=== PATIENT | female | born 1995 ===

== ENCOUNTER 2019-05-29 13:36 | Emergency (ER) | payer SELFPAY ==
[~2019-05-29] VITALS: Ht 165.1 cm; Wt 70.3 kg
[2019-05-29 13:37] VITALS: BP 132/70
--- NOTE | 2019-05-29 13:37 | NUR ---
ED Nurse Note: Pt brought in by ambulance due to seizure activity x 60 seconds tonic clonic. Pt was sitting down and and had a seizure witnessed by her boyfriend. No signs of trauma. Pt denies CP or dizziness. Hx of substance abuse and seizures. No taking anything for seizures. AAO x4 and ambulatory with no respiratory distress. Seizure precautions are implemented.
[2019-05-29] MEDS ORDERED: Acetaminophen 500mg (ES) tab ORAL ONE (14:30)
--- NOTE | 2019-05-29 14:33 | NUR ---
ED Nurse Note: Noted pt to fidget and with mild hand tremors.
[2019-05-29 14:37] LABS: HEMATOCRIT 39.1 % (37.0-47.0); HEMOGLOBIN 12.9 G/DL (12.0-16.0); MEAN CORPUSCULAR VOLUME 91 FL (80-99); PLATELET COUNT 239 K/UL (150-450); RED BLOOD COUNT 4.31 M/UL (4.20-5.40); RED CELL DISTRIBUTION WIDTH 11.9 % (11.6-14.8); WHITE BLOOD COUNT 3.3 K/UL (4.8-10.8)
[2019-05-29 14:48] LABS: ANION GAP 10 mmol/L (5-15); APPEARANCE,URINE SLIGHTLY CLOUDY; BILIRUBIN, URINE NEGATIVE (NEGATIVE); BLOOD UREA NITROGEN 7 mg/dL (7-18); CARBON DIOXIDE 26 MMOL/L (21-32); CHLORIDE 106 MMOL/L (98-107); COLOR,URINE PALE YELLOW; CREATININE 0.7 MG/DL (0.55-1.30); GLUCOSE, URINE (UA) NEGATIVE (NEGATIVE); KETONES,URINE NEGATIVE (NEGATIVE); LEUKOCYTE ESTERASE ,URINE 1+ (NEGATIVE); NITRITE,URINE NEGATIVE (NEGATIVE); PH,URINE 6 (4.5-8.0); POTASSIUM 3.8 MMOL/L (3.5-5.1); PROTEIN,URINE NEGATIVE (NEGATIVE); SODIUM 142 MMOL/L (136-145); UROBILINOGEN,URINE NORMAL MG/DL (0.0-1.0)
--- NOTE | 2019-05-29 14:57 | NUR ---
Lab called. Patient postive for THC. notified. Will notify primary RN. Addendum: 05/29/19 at 1459 by [facility] ED Nurse Note this is an ED note:
[2019-05-29 15:04] LABS: ALANINE AMINOTRANSFERASE 15 U/L (12-78); ALBUMIN/GLOBULIN RATIO 1.2 (1.0-2.7); ALKALINE PHOSPHATASE 52 U/L (46-116); ASPARTATE AMINO TRANSFERASE 14 U/L (15-37); BILIRUBIN,TOTAL 0.4 MG/DL (0.2-1.0); CKMB < 0.5 NG/ML (0.0-3.6); CREATINE KINASE 96 U/L (26-308)
[2019-05-29] MEDS ORDERED: CEPHALEXIN500 MG ORAL (15:24)
[2019-05-29] MEDS ORDERED: Cephalexin 500mg cap ORAL ONE (15:30)
[2019-05-29 15:32] VITALS: BP 128/89
--- NOTE | 2019-05-29 15:32 | NUR ---
ER DISCHARGE NOTE: Patient is cleared to be discharged per ERMD, pt is aox4, on room air, with stable vital signs. pt was given dc instructions, pt was able to verbalize understanding, pt id band and iv site removed without complications. pt is able to ambulate with steady gait. pt took all belongings and left with her boyfriend.
--- NOTE | 2019-05-29 17:31 | Emergency Room Report ---
History of Present Illness General Chief Complaint: Seizure Source: Patient Present Illness HPI 24-year-old female presents ED for evaluation. States that she had a seizure today. History of seizures and states she is supposed to take her medication but does not know the name of it. States she is not compliant with this medication. States she does have the medication at home. Denies falling or hitting her head. Denies any headache. Denies any blurry vision nausea or vomiting. Denies neck stiffness. Denies fevers or chills. Denies drug use. Denies alcohol use. No other aggravating relieving factors. Denies any other associated symptoms Allergies: Coded Allergies: No Known Allergies (Unverified , 05/29/19) Patient History Past Medical History: seizures Past Surgical History: none Pertinent Family History: none Social History: Reports: drug use; Denies: smoking, alcohol use Last Menstrual Period: 05/25/19 Now: No : 1 Para: 0 Immunizations: UTD Reviewed Nursing Documentation: PMH: Agreed; PSxH: Agreed Nursing Documentation-PMH Past Medical History: No History, Except For Hx Seizures: Yes Review of Systems All Other Systems: negative except mentioned in HPI Physical Exam Vital Signs Date Time Temp Pulse Resp B/P (MAP) Pulse Ox O2 Delivery O2 Flow Rate FiO2 05/29/19 13:27 97.9 94 16 130/78 (95) 98 Room Air Sp02 EP Interpretation: reviewed, normal General Appearance: no apparent distress, alert, GCS 15, non-toxic Head: normocephalic, atraumatic Eyes: bilateral eye normal inspection, bilateral eye PERRL ENT: hearing grossly normal, normal pharynx, no angioedema, normal voice Neck: full range of motion, supple/symm/no masses Respiratory: chest non-tender, lungs clear, normal breath sounds, speaking full sentences Cardiovascular #1: regular rate, rhythm, no edema Cardiovascular #2: 2+ carotid (R), 2+ carotid (L), 2+ radial (R), 2+ radial (L) , 2+ dorsalis pedis (R), 2+ dorsalis pedis (L) Gastrointestinal: normal bowel sounds, non tender, soft, non-distended, no guarding, no rebound Rectal: deferred Genitourinary: normal inspection, no CVA tenderness Musculoskeletal: back normal, gait/station normal, normal range of motion, non- tender Neurologic: alert, oriented x3, responsive, motor strength/tone normal, sensory intact, speech normal Psychiatric: judgement/insight normal, memory normal, mood/affect normal, no suicidal/homicidal ideation Reflexes: 3+ bicep (R), 3+ bicep (L), 3+ tricep (R), 3+ tricep (L), 3+ knee (R) , 3+ knee (L) Skin: no rash Lymphatic: no adenopathy Medical Decision Making Diagnostic Impression: Primary Impression: UTI (urinary tract infection) Qualified Codes: N39.0 - Urinary tract infection, site not specified Additional Impression: Seizure disorder ER Course Hospital Course 24-year-old F presents to ED status post seizure. Differential diagnosis includes- breakthrough seizure, alcohol abuse, noncompliance with medication Clinical course Patient placed on stretcher. Initial history and physical I ordered labs, IV fluids Labs-electrolytes okay, no leukocytosis, hemoglobin/hematocrit stable. UA + bacteria. UDS+ THC EKG - NSR, no acute ischemic changes intepreted by me I discussed findings with patient. Explained that marijuana can lower seizure threshold. Explained the importance of taking her medication as directed. Given Keflex in ED. Safe for discharge for close outpatient follow-up. Will provide referrals Diagnosis - UTI, seizure disorder stable and discharged to home with Rx Keflex. Followup with PMD. Return to ED if symptoms recur or worsen Labs Test 05/29/19 14:06 White Blood Count 3.3 K/UL (4.8-10.8) Red Blood Count 4.31 M/UL (4.20-5.40) Hemoglobin 12.9 G/DL (12.0-16.0) Hematocrit 39.1 % (37.0-47.0) Mean Corpuscular Volume 91 FL (80-99) Mean Corpuscular Hemoglobin 29.9 PG (27.0-31.0) Mean Corpuscular Hemoglobin Concent 33.0 G/DL (32.0-36.0) Red Cell Distribution Width 11.9 % (11.6-14.8) Platelet Count 239 K/UL (150-450) Mean Platelet Volume 7.6 FL (6.5-10.1) Neutrophils (%) (Auto) % (45.0-75.0) Lymphocytes (%) (Auto) % (20.0-45.0) Monocytes (%) (Auto) % (1.0-10.0) Eosinophils (%) (Auto) % (0.0-3.0) Basophils (%) (Auto) % (0.0-2.0) Differential Total Cells Counted 100 Neutrophils % (Manual) 50 % (45-75) Lymphocytes % (Manual) 36 % (20-45) Monocytes % (Manual) 10 % (1-10) Eosinophils % (Manual) 2 % (0-3) Basophils % (Manual) 0 % (0-2) Band Neutrophils 2 % (0-8) Platelet Estimate Adequate Platelet Morphology Normal Red Blood Cell Morphology Normal Urine Color Pale yellow Urine Appearance Slightly cloudy Urine pH 6 (4.5-8.0) Urine Specific [place] 1.015 (1.005-1.035) Urine Protein Negative (NEGATIVE) Urine Glucose (UA) Negative (NEGATIVE) Urine Ketones Negative (NEGATIVE) Urine Blood 1+ (NEGATIVE) Urine Nitrite Negative (NEGATIVE) Urine Bilirubin Negative (NEGATIVE) Urine Urobilinogen Normal MG/DL (0.0-1.0) Urine Leukocyte Esterase 1+ (NEGATIVE) Urine RBC 0-2 /HPF (0 - 2) Urine WBC 5-10 /HPF (0 - 2) Urine Squamous Epithelial Cells Many /LPF (NONE/OCC) Urine Bacteria Moderate /HPF (NONE) Urine HCG, Qualitative Negative (NEGATIVE) Sodium Level 142 MMOL/L (136-145) Potassium Level 3.8 MMOL/L (3.5-5.1) Chloride Level 106 MMOL/L (98-107) Carbon Dioxide Level 26 MMOL/L (21-32) Anion Gap 10 mmol/L (5-15) Blood Urea Nitrogen 7 mg/dL (7-18) Creatinine 0.7 MG/DL (0.55-1.30) Estimat Glomerular Filtration Rate > 60 mL/min (>60) Glucose Level 96 MG/DL (74-106) Calcium Level 9.0 MG/DL (8.5-10.1) Total Bilirubin 0.4 MG/DL (0.2-1.0) Aspartate Amino Transf (AST/SGOT) 14 U/L (15-37) Alanine Aminotransferase (ALT/SGPT) 15 U/L (12-78) Alkaline Phosphatase 52 U/L (46-116) Total Creatine Kinase 96 U/L (26-308) Creatine Kinase MB < 0.5 NG/ML (0.0-3.6) Creatine Kinase MB Relative Index 0.5 Troponin I 0.000 ng/mL (0.000-0.056) Total Protein 7.3 G/DL (6.4-8.2) Albumin 4.0 G/DL (3.4-5.0) Globulin 3.3 g/dL Albumin/Globulin Ratio 1.2 (1.0-2.7) Salicylates Level 2.8 ug/mL (2.8-20) Urine Opiates Screen Negative (NEGATIVE) Acetaminophen Level < 2 MCG/ML (10-30) Urine Barbiturates Screen Negative (NEGATIVE) Phencyclidine (PCP) Screen Negative (NEGATIVE) Urine Amphetamines Screen Negative (NEGATIVE) Urine Benzodiazepines Screen Negative (NEGATIVE) Urine Cocaine Screen Negative (NEGATIVE) Urine Marijuana (THC) Screen Positive (NEGATIVE) Serum Alcohol < 3 mg/dL EKG Diagnostic Results Rate: normal Rhythm: NSR ST Segments: no acute changes ASA given to the pt in ED: No Rhythm Strip Diag. Results EP Interpretation: yes Rhythm: NSR, no PVC's, no ectopy Last Vital Signs Date Time Temp Pulse Resp B/P (MAP) Pulse Ox O2 Delivery O2 Flow Rate FiO2 05/29/19 15:32 98.0 78 15 128/89 100 Room Air Status: improved Disposition: HOME, SELF-CARE Condition: Stable Scripts Cephalexin* (KEFLEX*) 500 Mg Capsule 500 MG ORAL EVERY 6 HOURS for 7 Days, CAP Prov: Geovanny Cazares MD 05/29/19 Referrals: NOT CHOSEN IPA/,REFERRING (PCP) Yeni Ferrera [facility] Patient Instructions: Seizure, Adult Additional Instructions: take your seizure meds as prescribed. marijuana lowers the seizure threshold. followup with your PMD. Geovanny Cazares MD May 29, 2019 17:31
--- NOTE | 2019-05-30 11:32 | Cardiology Report ---
APPROVED REPORT EKG Measurement Heart [id number] Normal sinus rhythm Normal ECG
== END 2019-05-29 17:00 | disposition home or self-care (01) ==
LOC: EDBD 13:36 → EMR 16:40
DX: G40.909 Epilepsy, unspecified, not intractable, without status epilepticus (principal); N39.0 Urinary tract infection, site not specified; Z91.14 Patient's other noncompliance with medication regimen; F12.10 Cannabis abuse, uncomplicated
CPT/HCPCS: 36415; 80053; 80307; 81003; 81025; 82550; 82553; 84484; 85007; 85025; 87086; 93005; 96360; 99284; G0480; 80329

== ENCOUNTER 2019-08-22 18:56 | Emergency (ER) | payer SELFPAY ==
[~2019-08-22] VITALS: Ht 165.1 cm; Wt 70.3 kg
[~2019-08-22 18:56] MED LIST: CEPHALEXIN500 MG ORAL
--- NOTE | 2019-08-22 19:19 | NUR ---
ED Nurse Note: pt presents to ED from a sober living facility s/p sz. pt states that the sz lasted for 3 minutes and that she was disoriented for 8-10 minutes afterward but she does not remember it happening. her sz was witnessed by a friend and someone at the facility. pt reports hitting her head and has a 2 cm contusion to the back of her head. she rates the px a 9/10. pt reports that she did not take her keppra today but took gabapentin. she denies any N/V or respiratory symptoms at this time. Addendum: 08/22/19 at 1928 by NEGIN sz precautions in place. side rails padded, airway maintined, bed in lowest position, pt on biometrics instructor. accucheck 111
[2019-08-22 19:23] VITALS: BP 116/77
--- NOTE | 2019-08-22 19:38 | NUR ---
ED Nurse Note: Pt taken to CT via emmarvee by log grader.
--- NOTE | 2019-08-22 19:50 | NUR ---
ED Nurse Note: pt's friend Norbert runs the sober living facility that she lives at. he reports pt hit her head on the stairs. his contact information is: [phone]
--- NOTE | 2019-08-22 19:59 | Diagnostic Imaging Report ---
Indication: Seizure Technique: Contiguous 5 mm thick transaxial imaging of the head obtained in a Siemens Sensation [address] scanner. Soft tissue and bone windows generated. Automatic Exposure Control was utilized. Total Dose length Product (DLP): 1400.[address] Dose Index Volume (CTDIvol): 62.7 mGy Comparison: none Findings: The size and configuration of the cortical sulci, basal cisterns, and ventricles are within normal limits for age. There is no mass effect, midline shift, or edema identified. There is no evidence of acute hemorrhage or abnormal intra-axial or extra-axial fluid collections. The bones and soft tissues are unremarkable. There is a right posterior scalp hematoma. Impression: No mass effect, edema or acute bleed. Right posterior scalp hematoma. [facility] has communicated the preliminary results to the Emergency Department. Their findings are largely concordant with this report. The CT scanner at [facility] is accredited by the [employer] and the scans are performed using dose optimization techniques as appropriate to a performed exam including Automatic Exposure control.
--- NOTE | 2019-08-22 20:20 | NUR ---
ED Nurse Note: pt states she is unable to provide urine at this time, KARIS Barron notified
--- NOTE | 2019-08-22 20:54 | NUR ---
ED Nurse Note: pt insisiting on removing IV and stopping IV fluids. states she will "be able to give urine soon." pt d/c fluids on her own when RN would not stop them at her request.
[2019-08-22 20:56] LABS: ANION GAP 12 mmol/L (5-15); BLOOD UREA NITROGEN 7 mg/dL (7-18); CALCIUM 8.8 MG/DL (8.5-10.1); CARBON DIOXIDE 25 MMOL/L (21-32); CHLORIDE 103 MMOL/L (98-107); CREATININE 0.8 MG/DL (0.55-1.30); POTASSIUM 3.4 MMOL/L (3.5-5.1); SODIUM 140 MMOL/L (136-145)
[2019-08-22 20:56] LABS: BASOPHILS % (AUTO) 0.9 % (0.0-2.0); EOSINOPHILS % (AUTO) 5.1 % (0.0-3.0); HEMATOCRIT 39.8 % (37.0-47.0); HEMOGLOBIN 13.5 G/DL (12.0-16.0); LYMPHOCYTES % (AUTO) 21.4 % (20.0-45.0); MEAN CORPUSCULAR VOLUME 88 FL (80-99); MONOCYTES % (AUTO) 11.6 % (1.0-10.0); NEUTROPHILS % (AUTO) 61.1 % (45.0-75.0); PLATELET COUNT 263 K/UL (150-450); RED BLOOD COUNT 4.51 M/UL (4.20-5.40); RED CELL DISTRIBUTION WIDTH 10.6 % (11.6-14.8); WHITE BLOOD COUNT 6.1 K/UL (4.8-10.8)
[2019-08-22 21:01] LABS: ALANINE AMINOTRANSFERASE 20 U/L (12-78); ALBUMIN 4.1 G/DL (3.4-5.0); ALBUMIN/GLOBULIN RATIO 1.2 (1.0-2.7); ALKALINE PHOSPHATASE 53 U/L (46-116); ASPARTATE AMINO TRANSFERASE 20 U/L (15-37); BILIRUBIN,TOTAL 0.3 MG/DL (0.2-1.0)
--- NOTE | 2019-08-22 21:18 | Emergency Room Report ---
History of Present Illness General Chief Complaint: Seizure Source: Patient Present Illness HPI 24-year-old female with history of seizures reporting that has happened 4 times this year, here complaining of a new seizure today that led to a blackout. Obvious head contusion noted on parietal lobe. Patient complains of loss of consciousness. Denies dizziness nausea vomiting at this time. Reports that her seizures started earlier this year, describing them as grand mal, with total loss of urinary continence. Patient has not yet been seen by neurologist. Reports that she does not drive, does not drink alcohol, smoke, or use marijuana. Denies all other medical history, chest pain, shortness of breath, palpitation, no other associated symptoms. Reported she has not taken any medication for her seizures in the past. Denies head injury in the past. Allergies: Coded Allergies: No Known Allergies (Unverified , 05/29/19) Patient History Past Medical History: see triage record Past Surgical History: unable to obtain Pertinent Family History: none Last Menstrual Period: 08/20/19 Now: No Immunizations: UTD Reviewed Nursing Documentation: PMH: Agreed; PSxH: Agreed Nursing Documentation-PMH Past Medical History: No History, Except For Hx Seizures: Yes Review of Systems All Other Systems: negative except mentioned in HPI Physical Exam Vital Signs Date Time Temp Pulse Resp B/P (MAP) Pulse Ox O2 Delivery O2 Flow Rate FiO2 08/22/19 19:02 98.2 96 18 116/77 (90) 96 Room Air Sp02 EP Interpretation: reviewed, normal General Appearance: alert, GCS 15, non-toxic, mild distress Head: other - Obvious head contusion noted parietal lobe Eyes: bilateral eye normal inspection, bilateral eye PERRL ENT: hearing grossly normal, normal pharynx, no angioedema, normal voice Neck: full range of motion, supple, thyroid normal, no meningismus, no bony tend, supple/symm/no masses Respiratory: chest non-tender, lungs clear, normal breath sounds, no rhonchi, no respiratory distress, no retraction, no accessory muscle use, no wheezing, speaking full sentences Cardiovascular #1: regular rate, rhythm, no edema, no murmur, normal capillary refill Gastrointestinal: non tender, soft Rectal: deferred Genitourinary: normal inspection, no CVA tenderness Musculoskeletal: back normal, normal range of motion, no calf tenderness Neurologic: alert, motor strength/tone normal, oriented x3, sensory intact, responsive, speech normal Psychiatric: judgement/insight normal, memory normal, mood/affect normal, no suicidal/homicidal ideation Skin: no rash Lymphatic: no adenopathy Medical Decision Making PA Attestation Diagnosis and treatment plans were reviewed and discussed with my supervising physician Dr. Pearson Diagnostic Impression: Primary Impression: Seizure disorder Additional Impression: Head contusion ER Course 24-year-old female with history of seizures reporting that has happened 4 times this year, here complaining of a new seizure today that led to a blackout. Obvious head contusion noted on parietal lobe. Patient complains of loss of consciousness. Denies dizziness nausea vomiting at this time. Reports that her seizures started earlier this year, describing them as grand mal, with total loss of urinary continence. Patient has not yet been seen by neurologist. Reports that she does not drive, does not drink alcohol, smoke, or use marijuana. Denies all other medical history, chest pain, shortness of breath, palpitation, no other associated symptoms. Reported she has not taken any medication for her seizures in the past. Denies head injury in the past. Ddx considered but are not limited to: cerebral hematoma, concussion, skull fracture, head contusion Vital signs: are WNL, pt. is afebrile H&PE are most consistent with: Seizure disorder, head contusion ORDERS: head CT no contrast, CBC, CMP, PT PTT, UA, urine tox screen, EtOH, urine test, Keppra, Motrin ED INTERVENTIONS: NS bolus, Keppra DISCHARGE: At this time pt. is stable for d/c to home. Will provide printed patient care instructions, and any necessary prescriptions. Care plan and follow up instructions have been discussed with the patient prior to discharge. Patient agrees to follow-up with a neurologist for proper diagnosis of seizure copy of patient's presentation diagnosis was sent to the V in order for patient to be prevented from driving as it is contraindicated when having seizure disorder. Patient is aware and agrees. 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 Patient advised not to drink any alcohol and continue taking Keppra. If worsening symptoms return to the emergency room EKG Diagnostic Results Rate: normal Rhythm: NSR ST Segments: no acute changes Other Impression No acute ST changes CT/MRI/US Diagnostic Results CT/MRI/US Diagnostic Results : Imaging Test Ordered: Head CT no contrast Impression CT HEAD Without Contrast: No acute infarct, hemorrhage, mass or edema. No acute osseous abnormality. Mild mucosal thickening in the paranasal sinuses. Last Vital Signs Date Time Temp Pulse Resp B/P (MAP) Pulse Ox O2 Delivery O2 Flow Rate FiO2 08/22/19 19:23 96 18 Room Air 08/22/19 19:23 98.2 116/77 96 Disposition: HOME, SELF-CARE Condition: Stable Scripts Ibuprofen* (MOTRIN*) 600 Mg Tablet 600 MG ORAL Q8H PRN for For Pain, #30 TAB 0 Refills Prov: Beatrice Sneed 08/22/19 Levetiracetam (Keppra) 250 Mg Tablet 500 MG ORAL EVERY 12 HOURS for 30 Days, #120 TAB 0 Refills Prov: Beatrice Sneed 08/22/19 Patient Instructions: Facial or Scalp Contusion, [id number], Seizure, Adult Additional Instructions: Follow-up with your neurologist, take medication as directed, avoid driving as it is not recommended while you have seizure disorder. If worsening symptoms return to the emergency room Beatrice Sneed Aug 22, 2019 21:18
[2019-08-22] MEDS ORDERED: KEPPRA500 MG ORAL (21:19)
[2019-08-22] MEDS ORDERED: IBUPROFEN600 MG ORAL (21:20)
[2019-08-22 21:25] VITALS: BP 116/77
--- NOTE | 2019-08-22 21:25 | NUR ---
ER DISCHARGE NOTE: Patient is cleared to be discharged per ERMD, pt is aox4, on room air, with stable vital signs. pt was given dc and prescription instructions, pt was able to verbalize understanding, pt id band and iv site removed without complications. pt is able to ambulate with steady gait. pt took all belongings.
[2019-08-22 21:26] LABS: APPEARANCE,URINE CLEAR; BILIRUBIN, URINE NEGATIVE (NEGATIVE); GLUCOSE, URINE (UA) NEGATIVE (NEGATIVE); KETONES,URINE 1+ (NEGATIVE); LEUKOCYTE ESTERASE ,URINE 1+ (NEGATIVE); NITRITE,URINE NEGATIVE (NEGATIVE); PH,URINE 7 (4.5-8.0); PROTEIN,URINE 1+ (NEGATIVE); UROBILINOGEN,URINE NORMAL MG/DL (0.0-1.0)
[2019-08-22 21:32] LABS: COLOR,URINE YELLOW
== END 2019-08-22 21:25 | disposition home or self-care (01) ==
LOC: EMR 20:30
DX: G40.909 Epilepsy, unspecified, not intractable, without status epilepticus (principal); S00.93XA Contusion of unspecified part of head, initial encounter; X58.XXXA Exposure to other specified factors, initial encounter; Y92.9 Unspecified place or not applicable
CPT/HCPCS: 36415; 70450; 80053; 80299; 80307; 81001; 81025; 82962; 84484; 85025; 85610; 85730; 93005; 96360; 99284; G0480